=== PATIENT | female | born 1990 | race Caucasian/White ===

== ENCOUNTER 2020-06-26 22:54 | Inpatient (IN) | payer MEDICAID, OTHER ==
--- NOTE | 2020-06-26 23:25 | ED ---
Psych HPI - General Chief Complaint: Psychiatric Symptoms Stated Complaint: Mental Health Time Seen by Provider: 06/26/20 22:57 Source: patient, EMS Mode of arrival: EMS - History of Present Illness Initial Comments: this patient is a 29-year-old woman brought to have psychiatric evaluation. The patient had reportedly taken extra doses of herBuSpar. The patient does report feeling depressed and states that she feels like she doesn't want to go on living. MD Complaint: suicidal ideation, feels depressed -: unknown Associated Psychiatric Symptoms: depression, suicidal ideation Quality: getting worse Improves With: none Worsens With: none - Related Data Allergies Allergy/AdvReac Type Severity Reaction Status Date / Time No Known Allergies Allergy Verified 06/26/20 23:00 Review of Systems ROS Statement: Those systems with pertinent positive or pertinent negative responses have been documented in the HPI. ROS Other: All systems not noted in ROS Statement are negative. Constitutional: Denies: fever Respiratory: Denies: cough, dyspnea Cardiovascular: Denies: chest pain, syncope Gastrointestinal: Denies: abdominal pain, vomiting, diarrhea Genitourinary: Denies: dysuria, hematuria Musculoskeletal: Denies: back pain Neurological: Denies: headache, weakness Psychiatric: Reports: depression, suicidal thoughts. Denies: auditory hallucinations, visual hallucinations, homicidal thoughts Past Medical History Past Medical History: No Reported History History of Any Multi-Drug Resistant Organisms: None Reported Past Surgical History: No Surgical Hx Reported Past Psychological History: Unable to Obtain Past Alcohol Use History: None Reported Past Drug Use History: None Reported General Exam Limitations: no limitations General appearance: alert, in no apparent distress Head exam: Present: atraumatic, normocephalic Eye exam: Present: normal appearance. Absent: scleral icterus, conjunctival injection ENT exam: Present: normal oropharynx Respiratory exam: Present: normal lung sounds bilaterally. Absent: respiratory distress, wheezes, rales, rhonchi, stridor Cardiovascular Exam: Present: regular rate, normal rhythm, normal heart sounds. Absent: systolic murmur, diastolic murmur, rubs, gallop GI/Abdominal exam: Present: soft. Absent: tenderness, guarding, rebound, mass Extremities exam: Present: normal inspection, normal capillary refill Back exam: Present: normal inspection. Absent: CVA tenderness (R), CVA tenderness (L) Neurological exam: Present: alert Psychiatric exam: Present: suicidal ideation, other (Patient has bizarre affect and is displaying paranoid delusional thought content.). Absent: homicidal ideation Skin exam: Present: warm, dry, intact, normal color. Absent: rash Course Vital Signs 06/26/20 06/27/20 22:55 02:00 Temperature 98.3 F 97.7 F Pulse Rate 114 H 90 Respiratory 16 14 Rate Blood Pressure 119/83 90/57 O2 Sat by Pulse 99 99 Oximetry Medical Decision Making - Lab Data Lab Results 06/26/20 06/26/20 Range/Units 23:19 23:19 Urine Color Yellow Urine Appearance Clear (Clear) Urine pH 5.5 (5.0-8.0) Ur Specific [place] 1.039 H (1.001-1.035) Urine Protein Trace H (Negative) Urine Glucose (UA) Negative (Negative) Urine Ketones 1+ H (Negative) Urine Blood Negative (Negative) Urine Nitrite Negative (Negative) Urine Bilirubin 1+ H (Negative) Urine Urobilinogen 3.0 (<2.0) mg/dL Ur Leukocyte Esterase Small H (Negative) Urine RBC 1 (0-5) /hpf Urine WBC 8 H (0-5) /hpf Ur Squamous Epith Cells 2 (0-4) /hpf Urine Bacteria Rare H (None) /hpf Urine Mucus Moderate H (None) /hpf Urine HCG, Qual Not Detected (Not Detectd) Urine Opiates Screen Not Detected (NotDetected) Ur Oxycodone Screen Not Detected (NotDetected) Urine Methadone Screen Not Detected (NotDetected) Ur Propoxyphene Screen Not Detected (NotDetected) Ur Barbiturates Screen Not Detected (NotDetected) U Tricyclic Antidepress Not Detected (NotDetected) Ur Phencyclidine Scrn Not Detected (NotDetected) Ur Amphetamines Screen Not Detected (NotDetected) U Methamphetamines Scrn Not Detected (NotDetected) U Benzodiazepines Scrn Not Detected (NotDetected) Urine Cocaine Screen Not Detected (NotDetected) U Marijuana (THC) Screen Not Detected (NotDetected) Disposition Clinical Impression: Psychosis Disposition: ADMITTED IP TO THIS [facility] Condition: Fair Is patient prescribed a controlled substance at d/c from ED?: No
[2020-06-27] LABS: Appearance,Urine Clear (Clear); Bacteria,Urine Rare /hpf; Bilirubin,Urine 1+ (Negative); Blood,Urine Negative (Negative); Color,Urine Yellow; Glucose,Urine (UA) Negative (Negative); Ketones,Urine 1+ (Negative); Leukocyte Esterase,Urine Small (Negative); Mucus,Urine Moderate /hpf; Nitrite,Urine Negative (Negative); PH, Urine 5.5 (5.0-8.0); Protein,Urine Trace (Negative); RBC,Urine 1 /hpf (0-5); Specific Gravity,Urine 1.039 (1.001-1.035); Squamous Epithelial Cell,Urine 2 /hpf (0-4); WBC,Urine 8 /hpf (0-5)
[2020-06-27 00:10] LABS: Amphetamine Screen,Urine Not Detected (NotDetected); Barbiturate Screen,Urine Not Detected (NotDetected); Benzodiazepines Screen,Urine Not Detected (NotDetected); Cocaine Screen,Urine Not Detected (NotDetected); Methadone Screen, Urine Not Detected (NotDetected); Opiate Screen,Urine Not Detected (NotDetected); Oxycodone Screen, Urine Not Detected (NotDetected); Phencyclidine Screen,Urine Not Detected (NotDetected); Tricyclic Antidepressant,Urine Not Detected (NotDetected); Urn Cannabinoid Scrn Not Detected (NotDetected)
[2020-06-27] MEDS ORDERED: NICOTINE 14MG/24HR PATCH TRANSDERM STA (01:04)
[2020-06-27] MEDS ORDERED: LORazepam 1 MG TAB PO STA (01:04)
[2020-06-27] MEDS ORDERED: MAG HYDROX/AL HYDROX/SIMETH 30 ML CUP PO PRN (01:56)
[2020-06-27] MEDS ORDERED: MAGNESIUM HYDROXIDE 2,400 MG/10 ML CUP PO PRN (01:56)
[2020-06-27] MEDS ORDERED: ACETAMINOPHEN TAB 325 MG TAB PO PRN (01:56)
[2020-06-27] MEDS ORDERED: LORazepam 2 MG/ML INJ IM PRN (01:59)
--- NOTE | 2020-06-27 04:14 | P.PN ---
Progress Note - Text Progress Note Date: 06/27/20 patient inappropriate for evaluation at this time
[2020-06-27] MEDS ORDERED: ZIPRASIDONE 20 MG VIAL IM PRN (06:00)
[2020-06-27 09:31] LABS: ALT 17 U/L (4-34); AST 24 U/L (14-36); African American GFR (CKD) >90 (>60 ml/min/1.73 sqM); Albumin 3.8 g/dL (3.5-5.0); Alkaline Phosphatase 46 U/L (38-126); Anion Gap 4 mmol/L; Blood Urea Nitrogen 11 mg/dL (7-17); Calcium 9.2 mg/dL (8.4-10.2); Carbon Dioxide 28 mmol/L (22-30); Chloride 105 mmol/L (98-107); Cholesterol 173 mg/dL (<200); Glucose 88 mg/dL (74-99); HDL Cholesterol 49 mg/dL (40-60); LDL Cholesterol,Calculated 106 mg/dL (0-99); Non-African American GFR(CKD) >90 (>60 ml/min/1.73 sqM); Sodium 137 mmol/L (137-145); Total Bilirubin 0.8 mg/dL (0.2-1.3); Triglycerides 90 mg/dL (<150)
[2020-06-27 09:40] LABS: Basophils % (A) 1 %; Eosinophils # (A) 0.2 k/uL (0-0.7); Eosinophils % (A) 4 %; HCT 45.4 % (34.0-46.0); HGB 14.6 gm/dL (11.4-16.0); Lymphocytes # (A) 1.4 k/uL (1.0-4.8); Lymphocytes % (A) 26 %; MCH 31.9 pg (25.0-35.0); MCHC 32.2 g/dL (31.0-37.0); MCV 98.8 fL (80.0-100.0); Mean Platelet Volume 7.5; Monocytes # (A) 0.4 k/uL (0-1.0); Monocytes % (A) 8 %; Neutrophils # (A) 3.2 k/uL (1.3-7.7); Neutrophils % (A) 60 %; Platelet Count 258 k/uL (150-450); RDW 12.7 % (11.5-15.5); WBC 5.4 k/uL (3.8-10.6)
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
[2020-06-27] MEDS: NICOTINE 14MG/24HR PATCH TRANSDERM SCH (10:52)
[2020-06-27 12:36] LABS: Hemoglobin A1C 5.3 % (4.0-6.0)
--- NOTE | 2020-06-27 23:07 | P.MDCNMH ---
History of Present Illness H&P Date: 06/27/20 Chief Complaint: medical evaluation 29 year old female with bipolar disorder patient currently residing at rehab facility for alcohol abuse for the past 2 months. patient was brought inhere due to bizarre behavior and suicide ideation. patient currently claims not to be on any meds for her bipolar disorder. she currently denies any suicidal ideation, she denies any medical concerns. denies any URI symptoms, denies nausea , vomiting, fever, chills, chest pain or trouble breathing. denies any vaginal discharge or bleeding denies urinary or bowel changes. Review of Systems Pertinent positives as noted in HPI. All other systems were reviewed and are negative Past Medical History Past Medical History: No Reported History History of Any Multi-Drug Resistant Organisms: None Reported Past Surgical History: No Surgical Hx Reported Past Anesthesia/Blood Transfusion Reactions: No Reported Reaction Smoking Status: Current every day smoker - Past Family History family Family Medical History: No Reported History Medications and Allergies Allergies Allergy/AdvReac Type Severity Reaction Status Date / Time No Known Allergies Allergy Verified 06/26/20 23:00 Physical Exam Vitals: Vital Signs Temp Pulse Pulse Resp BP BP Pulse Ox 06/27/20 16:52 98.4 F 06/27/20 13:04 98.8 F 06/27/20 02:35 97.0 F L 106 H 16 100/67 96 06/27/20 02:00 97.7 F 90 14 90/57 99 Intake and Output 06/27/20 06/27/20 06/28/20 14:59 22:59 06:59 Other: Weight 56.6 kg patient declined physical exam at this time Cranial Nerve Examination - Cranial Nerves Cranial Nerve I- Olfactory: Impaired (patient declined physical exam at this time) Cranial Nerve II- Optic: Impaired Cranial Nerve III- Oculomotor: Impaired Cranial Nerve IV- Trochlear: Impaired Cranial Nerve V- Trigeminal: Impaired Cranial Nerve - Abducens: Impaired Cranial Nerve VII- Facial: Impaired Cranial Nerve VIII- Auditory: Impaired Cranial Nerve IX- Glossopharyngeal: Impaired Cranial Nerve X- Vagus: Impaired Cranial Nerve XI- Accessory: Impaired Cranial Nerve XII- Hypoglossal: Impaired Results CBC & Chem 7: 06/27/20 08:58 06/27/20 08:58 Labs: Abnormal Lab Results - Last 24 Hours (Table) 11/01/20 Range/Units 08:58 Total Protein 6.0 L (6.3-8.2) g/dL LDL Cholesterol, Calc 106 H (0-99) mg/dL Assessment and Plan Assessment: acute psychosis , suicidal ideation , bipolar disorder management per psych tobacco smoking nicotine replacement therapy patient encouraged to quit smoking follow up labs Thank you for allowing us to participate in the care of this patient. We will follow peripherally. Do not hesitate to contact us with questions. Someone can be reached from the [facility] hospitalist group at all hours of the day at [phone].
[2020-06-28] MEDS: LORazepam 1 MG TAB PO PRN ×2 (00:16→18:46)
[2020-06-28] MEDS: NICOTINE 14MG/24HR PATCH TRANSDERM SCH (08:55)
--- NOTE | 2020-06-28 10:15 | P.PN ---
Progress Note - Text Progress Note Date: 06/28/20 Interval History: Patient was seen sitting in on group today and was directable and agreeable to speak with commercial insurance underwriter in the office. He shouldn't appear to have a bizarre blank stare to commercial insurance underwriter. She had poverty of content and positive speech. Patient was looking around the room from time to time and was easily distracted. Patient was logical in thought process. She claims that she is here in the hospital because "I had a seizure". She has poor insight and judgment. She states that she has a history of bipolar disorder. She had significant thought blocking and claims that she has "trust issues" and spoke more about paranoia towards others. She states that she is trying to go to groups. She was focused on discharge. Patient claims that she is agreeable to take Abilify however must take Wellbutrin as well. She claims that she is sleeping fairly a night however is agreeable to start melatonin. At this time patient denies any suicidal or homical ideations, intent or plan. Patient denies any auditory, visual hallucinations. Mental Status Exam: General Appearance: Patient appears to be stated age is alert, bizarre, gazing around the room, poor hygiene and grooming, wearing street clothing. Behavior: Patient is calmly seated without any agitated behavior. Bizarre at times. Speech: Patient's speech is fluent and nonpressured. [place]. Monotone. Mood/Affect: Mood is "good sometimes", affect is congruent and constricted. Suicidality/Homicidality: Patient denies having any suicidal or homicidal ideation intent or plan. Perceptions: Patient denies any visual hallucinations and denies any auditory hallucinations Though content/process: Poverty of content and concrete. Logical. Endorsing paranoia. Memory and concentration: AOX3, grossly intact for the purposes of this session Judgment and insight: Poor. Assessment Bipolar disorder type I, currently in manic episode with psychotic features History of alcohol abuse nicotine dependence Plan: -Patient continues to meet criteria for inpatient psychiatric admission for symptom stabilization and safety. Patient has signed medication consent and was placed in patient's chart. Currently awaiting deferral and court date. -Medications: Patient is agreeable to take Abilify 5 mg daily for mood stabilization/psychosis. Patient also requested to be on Wellbutrin 100 mg daily for mood. -When necessary Ativan and Geodon for agitation/aggression. -NRT - nicotine patch -SW on board for discharge planning. Encouraged the patient to participate in milieu. Currently awaiting deferral and court date. Encouraging patient to take medications and participate in group.
[2020-06-28] MEDS: buPROPion SR 100 MG TABLET.ER PO SCH (11:30)
[2020-06-28] MEDS: ARIPiprazole 5 MG TAB PO SCH (11:30)
[2020-06-28] MEDS: MELATONIN 5 MG TABLET PO SCH (23:00)
[2020-06-29] MEDS: buPROPion SR 100 MG TABLET.ER PO SCH (08:39)
[2020-06-29] MEDS: ARIPiprazole 5 MG TAB PO SCH (08:39)
[2020-06-29] MEDS: NICOTINE 14MG/24HR PATCH TRANSDERM SCH (08:39)
--- NOTE | 2020-06-29 10:28 | P.PN ---
Progress Note - Text Progress Note Date: 06/29/20 Interval History: Patient was seen sitting in on group today and was directable and agreeable to speak with advertising writer in the office. Patient appears to be more talkative today with advertising writer and more appropriate. She was focused on her medications and having her Wellbutrin increased. She believes that her Wellbutrin should be at "higher dose" and was referring to doses over 300 mg. She claims that she is feeling some anxiety during the day and had a good response with Inderal in the past. She denies any akathisia-like symptoms however did state that she had been pacing at times. She states that her paranoia has been improving significantly and also her racing thoughts. She appeared to have some improvement in her attention span and was not responding to internal stimuli today. Patient was logical in thought process. Patient has gradually improving insight and judgment today. She states that she is trying to go to groups and participate as best she can. She claims that she is sleeping fairly at night however did not take her melatonin last night and took an Ativan instead. At this time patient denies any suicidal or homical ideations, intent or plan. Patient denies any auditory, visual hallucinations. Mental Status Exam: General Appearance: Patient appears to be stated age is alert, less bizarre today and more directable, improving hygiene and grooming, wearing street clothing. Behavior: Patient is calmly seated without any agitated behavior. Less bizarre today. Speech: Patient's speech is fluent and nonpressured. [place] Mood/Affect: Mood is "a bit better" however does endorse anxiety, affect is congruent and constricted. Suicidality/Homicidality: Patient denies having any suicidal or homicidal ideation intent or plan. Perceptions: Patient denies any visual hallucinations and denies any auditory hallucinations Though content/process: Poverty of content and concrete. Logical. Paranoia improving. Focused on her medications. Memory and concentration: AOX3, grossly intact for the purposes of this session Judgment and insight: Poor, improving mildly Assessment Bipolar disorder type I, currently in manic episode with psychotic features History of alcohol abuse nicotine dependence Plan: -Patient continues to meet criteria for inpatient psychiatric admission for symptom stabilization and safety. Patient has signed medication consent and was placed in patient's chart. Currently awaiting deferral set for 07/01/[address] -Medications: Switched Abilify 5 mg to qhs for mood stabilization/psychosis. Increased Wellbutrin 150 mg daily for mood. Added Inderal 10 mg twice a day for anxiety. -When necessary Ativan and Geodon for agitation/aggression. -NRT - nicotine patch -SW on board for discharge planning. Encouraged the patient to participate in milieu. Currently awaiting deferral and court date. Encouraging patient to take medications and participate in group. Likely discharge in 2-3 days
[2020-06-29] MEDS: PROPRANOLOL 10 MG TAB PO SCH ×2 (11:25→20:53)
[2020-06-29] MEDS: LORazepam 1 MG TAB PO PRN (18:34)
[2020-06-29] MEDS: MELATONIN 5 MG TABLET PO SCH (20:52)
[2020-06-29] MEDS ORDERED: ARIPiprazole 5 MG TAB PO SCH (21:00)
[2020-06-30 08:45] VITALS: RESP 16
[2020-06-30] MEDS: NICOTINE 14MG/24HR PATCH TRANSDERM SCH (08:45)
[2020-06-30] MEDS: buPROPion SR 150 MG TABLET.ER PO SCH (08:45)
[2020-06-30] MEDS: PROPRANOLOL 10 MG TAB PO SCH ×2 (08:45→20:10)
[2020-06-30] MEDS ORDERED: LORazepam 0.5 MG TAB PO PRN (09:26)
[2020-06-30] MEDS: busPIRone HCl 10 MG TAB PO SCH ×2 (09:26→20:10)
[2020-06-30] MEDS ORDERED: diphenhydrAMINE 25 MG CAP PO PRN (09:26)
--- NOTE | 2020-06-30 09:26 | P.PN ---
Progress Note - Text Progress Note Date: 06/30/20 Interval History: Patient was seen wandering the hallways this morning and was directable and ag reeable to speak with commercial lines underwriter in the office. Patient states that overall she is feeling mildly better. She claims that her anxiety is improving mildly however was requesting to have an additional medication to help her with this. Patient was agreeable to take BuSpar. She continues to be focused on her medications and gives a vague description of her symptoms. She claims that she feels mildly paranoid today however states that this is improving. Patient claims that her racing thoughts have also been improving. She appeared to have some improvement in her attention span and was not responding to internal stimuli today. Patient was logical in thought process. Patient has gradually improving insight and judgment today. She states that she is trying to go to groups and participate as best she can. She claims that she did not sleep well last night and required an Ativan. At this time patient denies any suicidal or homical ideations, intent or plan. Patient denies any auditory, visual hallucinations. Mental Status Exam: General Appearance: Patient appears to be stated age is alert, more directable, improving hygiene and grooming, wearing street clothing. Behavior: Patient is calmly seated without any agitated behavior. Speech: Patient's speech is fluent and nonpressured. [place] Mood/Affect: Mood is "a bit better" however does endorse anxiety, affect is congruent and constricted. Suicidality/Homicidality: Patient denies having any suicidal or homicidal ideation intent or plan. Perceptions: Patient denies any visual hallucinations and denies any auditory hallucinations Though content/process: Poverty of content and concrete. Logical. Paranoia improving. Focused on her medications. Memory and concentration: AOX3, grossly intact for the purposes of this session Judgment and insight: improving mildly Assessment Bipolar disorder type I, currently in manic episode with psychotic features History of alcohol abuse nicotine dependence Plan: -Patient continues to meet criteria for inpatient psychiatric admission for symptom stabilization and safety. Patient has signed medication consent and was placed in patient's chart. Currently awaiting deferral set for 07/01/[address] -Medications: Continue with Abilify 5 mg to qhs for mood stabilization/psychosis. Continue with Wellbutrin 150 mg daily for mood. Continue with Inderal 10 mg twice a day for anxiety. I added BuSpar 10 mg twice a day for anxiety. added Benadryl 25 mg daily at bedtime when necessary for insomnia. Decreased prn ativan -When necessary Ativan and Geodon for agitation/aggression. -NRT - nicotine patch -SW on board for discharge planning. Encouraged the patient to participate in milieu. Currently awaiting deferral tomorrow. The patient does well then likely discharge either tomorrow or Sunday back to [facility].
[2020-06-30] MEDS: NICOTINE 21MG/24HR PATCH TRANSDERM SCH (11:58)
[2020-06-30] MEDS ORDERED: MELATONIN 5 MG TABLET PO SCH (21:00)
[2020-06-30] MEDS ORDERED: ARIPiprazole 5 MG TAB PO SCH (21:00)
[2020-07-01] MEDS: PROPRANOLOL 10 MG TAB PO SCH (08:33)
[2020-07-01] MEDS: buPROPion SR 150 MG TABLET.ER PO SCH (08:33)
[2020-07-01] MEDS: busPIRone HCl 10 MG TAB PO SCH (08:33)
[2020-07-01] MEDS: NICOTINE 21MG/24HR PATCH TRANSDERM SCH (08:33)
[2020-07-01] MEDS ORDERED: diphenhydrAMINE 50 MG CAP PO PRN (09:54)
--- NOTE | 2020-07-01 10:00 | P.PN ---
Progress Note - Text Progress Note Date: 07/01/20 Interim history: I reviewed the medical record, interviewed the patient and discussed her treatment and treatment plan during team meeting. Patient was in tena and agreed to follow me to office ,she reports initial and middle insomnia,rates her depression 7/10 and anxiety 5 or 6/10,10 being the worst,she endorses feeling overwhelmed,no energy or motivation , she talked about being sober for 60 days ,stated that she is still paranoia and suspicious ,having racing thoughts and easily distracted,denies any hallucinations or delusional thinking ,has been compliant with medications and denies any side-effect SLEPT:4 hours with PRN Benadryl ,participating in groups TODAY VITALS:temp:98.3,P:83,R:16,BP:89/62 Mental status exam: She presented as a female unkempt with long black hair. She made eye contact did appear to fully attend to the interview. . . Her speech was not spontaneous but coherent and goal directed ,some loose of association . Her affect was labile ,endorses paranoia and suspicious feeling She denied suicidal ideation or wishes. She did not express clear ideas reference, or delusions. Her thinking was concrete She denied hallucinations and did not appear to be responding to internal stimuli.Insight and judgment are limited Assessment: Bipolar disorder type I, currently in manic episode with psychotic features History of alcohol abuse Plan: -Patient continues to meet criteria for inpatient psychiatric admission for symptom stabilization and safety. . Currently awaiting deferral set for 07/01/[address] -Medications: increase Abilify 10 mg to qhs for mood stabilization/psychosis. Increase Wellbutrin 200 daily for mood. Continue with Inderal 10 mg twice a day for anxiety. Continue BuSpar 10 mg twice a day for anxiety. Increase Benadryl 50 mg at bedtime when necessary for insomnia. , Continue Continue Geodon 20 mg IM twice a day when necessary for agitation or aggression. Evaluate clinical status response to treatment on a daily basis. Encourage participation in therapeutic groups and activities.
[2020-07-01 11:26] VITALS: BP 102/61; PULSE 94
[2020-07-01 14:10] VITALS: TEMP 99
--- NOTE | 2020-07-01 17:29 | DS ---
DISCHARGE SUMMARY DATE OF ADMISSION: 06/27/2020 DATE OF DISCHARGE: 07/01/2020 The patient was admitted under Dr. Camarena's care. BODY WORKER: Dr. Deedee Topete for history and physical and medical management. DISCHARGE DIAGNOSES: 1. Bipolar disorder, manic with psychotic features, in remission. 2. Alcohol use disorder, in early remission. 3. Nicotine dependence. For history and physical, please refer to dictation by Dr. Mosqueda, as he did admit the patient on June 27. The patient was staying in a rehab house for her alcohol use, and one of her roommates stated that the patient had been acting "weird" and patient was claiming that she did have seizures. According to his dictation, the patient was a very poor historian. He stated that she was diagnosed with bipolar disorder type 2 and she was on Lamictal and Wellbutrin prior to her admission. For complete history and physical, please refer to his dictation. HOSPITAL COURSE: The patient initially was admitted on an involuntary basis under Dr. Ba Camarena, who did start the patient back on her Wellbutrin. However, he was starting her on Abilify as a mood stabilizer and for psychosis, and Abilify was titrated to 10 mg daily. As the patient did request to continue on her Wellbutrin, she continues on Wellbutrin SR 200 mg daily for mood. The patient was complaining of very high anxiety, and he did start her on Inderal or propranolol 10 mg twice a day in addition to BuSpar. He started her on BuSpar 10 mg twice a day. The patient was complaining of trouble sleeping at night and Benadryl or diphenhydramine 50 mg as needed for insomnia was added in addition to melatonin 10 mg at bedtime for sleep. The patient was participating in groups and she was very cooperative, not bizarre as before. She was focusing about going back to the recovery home, as she stated that she has been sober from alcohol for almost 60 days. She did have her deferral meeting on July 01 and I did discuss her case with the team. All the team agreed that she needs to be transferred back to the recovery home. At the time of discharge, she was sleeping okay with melatonin and Benadryl. She denied any suicidal or homicidal ideation, intent or plan. She denied any auditory or visual hallucination. She has been compliant with all oral medication and she denied any side effect. MENTAL STATUS EXAMINATION: At the time of the discharge, the patient appears her stated age. She is alert. At times she is guarded, does not elaborate on much information. Fair hygiene and grooming. She was able to sit quietly without any agitation. Her speech was spontaneous, coherent, her stated mood "much better." Affect is constricted. She denied having any suicidal or homicidal ideation, intent or plan. She denied having any visual hallucination or auditory hallucination. She is endorsing some paranoia, but she stated it is much less since she started Abilify. She is alert, oriented x3. Memory is grossly intact. Insight and judgment are fair. ASSESSMENT: 1. Bipolar disorder, type 1, manic with psychotic features, in remission, versus bipolar type 2. 2. Alcohol use disorder, in early remission. 3. Nicotine dependence. 4. Rule out personality disorder. PLAN: The patient will be discharged today after her deferral meeting. The patient was transferred back to the recovery house for her alcohol use disorder. The patient did agree to continue on her current medications, includin. Abilify 10 mg daily for mood stabilization and psychosis. 2. Wellbutrin SR 200 mg daily for mood. 3. Propranolol 10 mg twice a day for anxiety. 4. BuSpar 10 mg twice a day for anxiety. 5. Melatonin 10 mg at bedtime for insomnia in addition to Benadryl 50 mg as needed for sleep. The patient was instructed to return back to the hospital if any symptoms recur. MMISELAL / LAURENN: [id number] /
[2020-07-01] MEDS ORDERED: ARIPiprazole 10 MG TAB PO SCH (21:00)
[2020-07-02] MEDS ORDERED: buPROPion SR 100 MG TABLET.ER PO SCH (09:00)
== END 2020-07-01 14:41 | disposition home or self-care (01) | DRG 885 ==
LOC: EC 22:54 → 3MHU 06-27 01:39
PROVIDERS: ADMIT Psychiatry & Neurology Psychiatry; ATTEND Psychiatry & Neurology Psychiatry
DX: F31.2 Bipolar disorder, current episode manic severe with psychotic features (principal); R45.851 Suicidal ideations; F10.11 Alcohol abuse, in remission; Z71.6 Tobacco abuse counseling; F17.210 Nicotine dependence, cigarettes, uncomplicated; F41.9 Anxiety disorder, unspecified; G47.00 Insomnia, unspecified; Z79.899 Other long term (current) drug therapy; Z81.1 Family history of alcohol abuse and dependence; F60.9 Personality disorder, unspecified
CPT/HCPCS: 80053; 80061; 80306; 81001; 81025; 82075; 83036; 84443; 85025; 99285